=== PATIENT | female | born 1940 | race Caucasian/White ===

== ENCOUNTER 2017-10-09 22:01 | Inpatient (IN) | payer OTHER ==
[~2017-10-09] VITALS: Ht 152.4 cm; Wt 70.0 kg
[~2017-10-09 22:01] MED LIST: APRESOLINE100 MG PO; COZAAR100 MG PO; LO-DOSE ASPIRIN81 M2 PO; LUMIGAN 0.50 DROP/22 BOTH EYES; NAPROSYN500 MG PO; NORVASC2.5 MG PO; TENORMIN100 MG PO; VITAMIN D32000 UNI1 PO
[2017-10-10 06:00] VITALS: BP 172/79
[2017-10-10 12:45] VITALS: BP 169/79
[2017-10-10 15:44] VITALS: BP 144/70
[2017-10-10 20:03] VITALS: BP 158/70
[2017-10-11] VITALS: BP 146/69
[2017-10-11 04:00] VITALS: BP 149/71
[2017-10-11 05:54] LABS: CHLORIDE 106 MEQ/L (99-109); CREATININE 0.8 MG/DL (0.6-1.3); GFR ESTIMATE (CALCULATED) > 59 mL/min/; GLUCOSE 156 mg/dL (70-99); POTASSIUM 3.9 MEQ/L (3.7-5.4); SODIUM 141 MEQ/L (136-147); UREA NITROGEN (BUN) 17 mg/dL (9-23)
[2017-10-11] MEDS ORDERED: ELIQUIS2.5 MG PO (07:46)
[2017-10-11] MEDS ORDERED: OXYCODONE HCL5 MG PO (07:46)
[2017-10-11] MEDS ORDERED: DOCUSATE SODIU100 MG PO (07:46)
[2017-10-11 08:04] VITALS: BP 162/72
[2017-10-11 11:38] VITALS: BP 147/66
[2017-10-11 15:30] VITALS: BP 167/71
[2017-10-11 20:25] VITALS: BP 152/70
[2017-10-12] VITALS: BP 129/60
[2017-10-12 04:00] VITALS: BP 136/61
[2017-10-12 08:29] VITALS: BP 165/75
[2017-10-12 12:00] VITALS: BP 131/60
== END 2017-10-12 13:12 | DRG 470 ==
LOC: ENRESERV 22:01 → 3WEST 10-10 05:23 → 2SOUTH 10-10 05:23 → 3WEST 10-10 12:33
PROVIDERS: Orthopaedic Surgery
PROC: 0SRC0J9 Replacement of Right Knee Joint with Synthetic Substitute, Cemented, Open Approach (ICD-10-PCS; principal; 2017-10-10)
DX: M17.11 Unilateral primary osteoarthritis, right knee (principal); I10 Essential (primary) hypertension
CPT/HCPCS: 80048; C1713; J0690; J1100; J1885; J2250; J2795; J3010; J7050; J7120; S0020